=== PATIENT | female | born 1955 | race Caucasian/White ===

== ENCOUNTER 2016-06-14 11:14 | Emergency (ER) | payer OTHER ==
[2016-06-14 11:27] VITALS: RESP 16
--- NOTE | 2016-06-14 12:54 | ED ---
General Adult HPI - General Chief complaint: Back Pain/Injury Stated complaint: fell/rib pain Time Seen by Provider: 06/14/16 12:40 Source: patient, RN notes reviewed Mode of arrival: ambulatory Limitations: no limitations - History of Present Illness Initial comments: Patient's a 61-year-old female who presents emergency room today with a chief complaint of a fall that occurred last night. She does admit that she slipped on the ice falling backwards onto the right side into a step. Patient does admit to pain to the posterior right side of her ribs. She denies any other complaints or associated symptoms. Denies any head injury or loss conscious. Denies any blood thinners. Patient mitts pain is worse with certain movements of bending and twisting. Patient denies any recent fever, chills, shortness of breath, chest pain,abdominal pain, nausea or vomiting, numbness or tingling, dysuria or hematuria, constipation or diarrhea, headaches or visual changes, or any other complaints. - Related Data Allergies Allergy/AdvReac Type Severity Reaction Status Date / Time No Known Allergies Allergy Verified 06/14/16 13:25 Review of Systems ROS Statement: Those systems with pertinent positive or pertinent negative responses have been documented in the HPI. ROS Other: All systems not noted in ROS Statement are negative. Past Medical History Past Medical History: No Reported History History of Any Multi-Drug Resistant Organisms: None Reported Additional Past Surgical History / Comment(s): shoulder Past Psychological History: No Psychological Hx Reported Smoking Status: Never smoker Past Alcohol Use History: None Reported Past Drug Use History: None Reported General Exam - General Exam Comments Initial Comments: General: The patient is awake and alert, in no distress, and does not appear acutely ill. Eye: Pupils are equal, round and reactive to light, extra-ocular movements are intact. No nystagmus. There is normal conjunctiva bilaterally. No signs of icterus. Ears, nose, mouth and throat: There are moist mucous membranes and no oral lesions. Neck: The neck is supple, there is no tenderness or JVD. Cardiovascular: There is a regular rate and rhythm. No murmur, rub or gallop is appreciated. Respiratory: Lungs are clear to auscultation, respirations are non-labored, breath sounds are equal. No wheezes, stridor, rales, or rhonchi. Musculoskeletal: Patient has normal appearance of the cervical, thoracic, lumbar spine. No step-offs form is appreciated. Patient does have no tenderness over spinous process. Mild tenderness to the right posterior ribs. No bruising or step-off. Patient tender locally. Strength 5/5. Sensation intact. Pulses equal bilaterally 2+. Neurological: A&O x 3. CN II-XII intact, There are no obvious motor or sensory deficits. Coordination appears grossly intact. Speech is normal. Skin: Skin is warm and dry and no rashes or lesions are noted. Psychiatric: Cooperative, appropriate mood & affect, normal judgment. Limitations: no limitations Course Vital Signs 06/14/16 11:24 Temperature 97.4 F L Pulse Rate 79 Respiratory 16 Rate Blood Pressure 116/77 O2 Sat by Pulse 97 Oximetry Medical Decision Making - Medical Decision Making Patient reexamined at this time shows no signs of distress. Patient's x-ray reviewed shows no acute fractures dislocations or any other acute abnormalities. Results were discussed with the patient. Patient advised return if any symptoms increase or worsen or for any other concerns. Disposition Clinical Impression: Rib contusion Disposition: HOME SELF-CARE Condition: Good Instructions: Rib Contusion (ED) Additional Instructions: Please use medication as discussed. Please follow-up with family doctor in the next 2 days of symptoms have not improved. Please return to emergency room if the symptoms increase or worsen or for any other concerns. Time of Disposition: 13:32
--- NOTE | 2016-06-14 13:16 | XR ---
EXAMINATION TYPE: XR ribs RT w pa chest xray DATE OF EXAM: 06/14/2016 1:07 PM COMPARISON: NONE HISTORY: Pain TECHNIQUE: Single view of the chest right views of the ribs are submitted. FINDINGS: The lungs are clear. No Evidence for pneumothorax. No evidence for focal contusion. Medi astinal structures are midline. Evaluation of the ribs fails to demonstrate evidence for displaced r ib fracture or secondary sign of rib fracture. IMPRESSION: Negative study
[2016-06-14 13:39] VITALS: BP 108/53; PULSE 81; TEMP 98.5
== END 2016-06-14 13:43 | disposition home or self-care (01) ==
LOC: EC 11:14
DX: R07.81 Pleurodynia (principal); S20.211A Contusion of right front wall of thorax, initial encounter; W18.09XA Striking against other object with subsequent fall, initial encounter; W00.0XXA Fall on same level due to ice and snow, initial encounter
CPT/HCPCS: 99283